=== PATIENT | male | born 1990 | race Caucasian/White ===

== ENCOUNTER 2025-03-30 19:32 | Emergency (ER) | payer BC, SELFPAY ==
--- OUTSIDE RECORDS SUMMARY | 2025-03-30 19:34 | XMS_ITS | Clinical Summary ---
Author Organization [email or web address] [facility] Address [address] [place] [address] Care Team Providers Care Welder Fabricator Name Role Phone Melissa Martin DO Primary Care Provider [phone] Allergies No known active allergies Medications Wiirk-7-NYX-EPA-Fi sh Oil 1,000 mg (120 mg-180 mg) cap Take 1 capsule by mouth. 0 8 Active cholecalciferol, Vitamin D3, (Vitamin D-3) 5,000 unit tab tablet Take 1 Tablet (5,000 units) by mouth once daily. 0 1 Active multivitamin (MVI) tablet Take 1 Tablet by mouth once daily. 0 1 Active methylphenidate HCl (METADATE ER) 20 mg extended-release tabletIndications: ADHD (attention deficit hyperactivity disorder), inattentive type Take 1 Tablet (20 mg) by mouth once daily. 30 Tablet 5 Active methylphenidate HCl 20 mg extended-release tabletIndications: ADHD (attention deficit hyperactivity disorder), inattentive type Take 1 Tablet (20 mg) by mouth once daily. 30 Tablet 5 Active methylphenidate HCl 20 mg extended-release tabletIndications: ADHD (attention deficit hyperactivity disorder), inattentive type Take 1 Tablet (20 mg) by mouth once daily. 30 Tablet 5 Active methylphenidate HCl 20 mg extended-release tabletIndications: ADHD (attention deficit hyperactivity disorder), inattentive type Take 1 Tablet (20 mg) by mouth once daily. 30 Tablet 5 Active Active Problems Problem Noted Date Diagnosed Date Acute stress disorder 11/04/2017 Depression 10/15/2017 Resolved Problems Problem Noted Date Diagnosed Date Resolved Date Tobacco use 04/01/2017 09/16/2024 Pain in joint, multiple sites 05/03/2008 04/01/2017 Major depressive disorder, s edson episode, unspecified 04/21/2008 04/01/2017 Ingrowing nail 07/15/2007 04/01/2017 Encounters Date Type Department Care Team Description 03/30/2025 4:45 PM CDT Ancillary Procedure [facility] [address] [place] [address] Arrived 03/30/2025 4:20 PM CDT Office Visit [facility] [address] [place] [address] hCuy Tirado MD Musculoskeletal Problem (Follow up Left ankle ) 03/30/2025 Travel 03/29/2025 8:30 AM CDT Office Visit [facility] [address] [place] [address] Guanakito Rodriguez DPManda Follow Up (Lft ankle fx /Xray 02/27/25/MRI 03/07/25 ) 03/29/2025 Travel 03/24/2025 Travel 03/08/2025 2:40 PM CDT Office Visit [facility] [address] [place] [address] Chuy Tirado MD Musculoskeletal Problem (Consult left ankle fracture per Dr. Martin) 03/07/2025 6:58 AM CDT - 03/07/2025 11:59 PM CDT Hospital Encounter [address] [address] Melissa Martin DO Pain and swelling of left ankle 03/07/2025 Travel 03/07/2025 Telephone [facility] [address] [place] [address] Melissa Martin DO 03/06/2025 3:10 PM CDT Office Visit [facility] [address] [place] [address] Melissa Martin DO Ankle Pain/problem (Left ankle pain 1 week ) 03/06/2025 Travel 02/27/2025 11:55 AM CDT Office [facility] [address] [facility] [address] Zulma Hyatt PA Ankle Pain/problem 02/27/2025 10:30 AM CDT Ancillary Procedure [facility] [address] [facility] [address] 02/27/2025 Travel 02/23/2025 1:30 PM CDT Office Visit [facility] [address] [facility] [address] Melissa Martin DO Toenail (Right great toe 1 week) 02/23/2025 Travel 01/05/2025 Telephone [facility] [address] [facility] [address] Melissa Martin DO Prior Authorization (methylphenidate HCl 20 mg extended-release tablet Approved 12/06/24-01/05/26) from Last 3 Months Immunizations Immunization Administration Dates Next Due AMB Influenza, IIV4 PF (=>6 mos Flulaval,Fluzone Fluarix)(Flu Clinic Only) 07/07/2019 COVID-19 vaccine ([employer] 30mcg/0.3mL) 12YO+ BIVALENT PF, MDV 07/01/2022 COVID-19 vaccine ([employer] 30mcg/0.3mL) PF, MDV 05/02/2021,04/11/2021 DTP 12/02/1990, 0,1989,1988 DTaP 05/09/1994 HIB HbOC (HibTITER) 12/02/1993 Hepatitis B (Peds) 10/14/1995,05/15/1995, 995 Influenza, IIV3 (Age >=3 years) 05/06/2011 Influenza, IIV4 07/01/2022,06/10/2016 MMR 12/04/2000,07/15/1990 Oral Polio Vaccine 05/09/1994, 1,1989,1988 Pneumococcal Conj 20-valent (Prevnar 20) 07/07/2023 Td (Age >=7 Years) 12/04/2000 Tdap 09/19/2022,03/26/2010 Family History Medical History Relation Name Comments Other Maternal Grandmother Teresita Vo upus Diabetes Mother Chrissie Psychiatric illness Other cousin c ommitted suicide age 24 Psychiatric illness Sister 2 depressi on Relation Name Status Comments Father Zack Alive Maternal Grandmother Teresita Caldera Mother Chrissie Alive Other Sister 1 Alisha Alive Sister 2 Social History Tobacco Use Types Packs/Day Years Used Date Smoking Tobacco: Former Cigarettes 0.5 10 Smokeless Tobacco: Never Tobacco Cessation:Counseling Given: Yes Alcohol Use Standard Drinks/Week Comments No 0 (1 standard drink = 0.6 oz pur e alcohol) PHQ-2 Answer Date Recorded PHQ-2 TOTAL SCORE 1 11/03/2024 Social Connections Answer Date Recorded Do you often feel lonely or isolated from those around you? 0 09/13/2024 Financial Resource Strain Answer Date R ecorded Difficulty of Paying Living Expenses 3 09/13/2024 Difficulty of Paying Living Expenses Not on file 09/13/2024 Food Insecurity Answer Date Recorded Do you worry your food will run out before you are able to buy more? 1 09/13/2024 Transportation Needs Answer Date Record ed Does lack of transportation keep you from medica l appointments? 1 09/13/2024 Does lack of transportation keep you from work, meetings or getting things that you need? 1 09/13/2024 Housing Stability Answer Date Recorded What is your housing situation today? 1 09/13/2024 Utilities Answer Date Recorded Do you have trouble paying f or utilities (for example, heat, electricity, water, phone)? 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 file Not on file Not on file Obstetrics History Last Filed Vital Signs Vital Sign Reading Time Taken Comments Blood Pressure 132/82 03/30/2025 4:19 PM CDT Pulse 82 03/30/2025 4:19 PM CDT Temperature 36.7 C (98.1 F) 03/30/2025 4:19 PM CDT Respiratory Rate - - Oxygen Saturation 95% 03/30/2025 4:19 PM CDT Inhaled Oxygen Concentration - - Weight 99.4 kg (219 lb 3.2 oz) 03/30/2025 4:19 P M CDT Height 176 cm (5' 9.29) 11/03/2024 10:45 AM PLUCK TRIMMER Body Mass Index 32.1 11/03/2024 10:45 AM PLUCK TRIMMER Plan of Treatment Upcoming Encounters Date Type Department Care Team (Late st Contact Info) Description 04/07/2025 3:10 PM CDT Office Visit [facility] [address] [place] [address] Melissa Martin DO [address] [place] [address] Health Maintenance Due Date Last Done Comments COVID-19 vaccine series ( season) 2024 07/01/2022, 05/02/2021, 04/11/2021 Influenza Vaccine (#1) 2025 , 07/07/2019, 06/10/2016, Additional history exists BMI (ht and wt on same day) for age 18+ 11/03/2025 11/03/2024, 08/17/2023, 06/18/2021, Additional history exists Depression screening for age 12+ 11/03/2025 11/03/2024, 05/09/2024, 08/17/2023, Additional history exists Lipids for age 35-44 11/03/2029 11/03/2024, 03/26/20 10 Tetanus booster 09/19/2032 09/19/2022, 03/01, 12/04/2000 Hepatitis B series for 19+ Completed 10/14, 05/15/1995, 04/14/1995 HIV for age 15-65 Completed 12/30/2017 Hepatitis C screening for age 18-79 Completed 12/30/2017 Pneumococcal series for age 6-49 Aged Out 07/07/2023 No longer eligible based on patient's age to complete this topic Procedures Procedure Name Priority Date/Time Associated Diagnosis Comments MR ANKLE LEFT WO STAT 03/07/2025 7:52 AM CDT Pain and swelling of left ankle CBC WITH AUTO DIFFERENTIAL Routine 03/06/2025 4:32 PM CDT Pain and swelling of left ankle URIC ACID Routine 03/06/2025 4:32 PM CDT Pain and swelling of left ankle SEDIMENTATION RATE Routine 03/06/2025 4: 32 PM CDT Pain and swelling of left ankle C-REACTIVE PROTEIN Routine 03/06/2025 4: 32 PM CDT Pain and swelling of left ankle LYME SCREEN W/REFLEX Routine 03/06/2025 4:32 PM CDT Pain and swelling of left ankle XR ANKLE 3 VIEWS LEFT SEYMOUR 02/27/2025 10:33 AM CDT Pain and swelling of left ankle LIPID PANEL W REFLEX MEASURED LDL Routine 11/03/2024 11:21 AM PLUCK TRIMMER Lipid screening ANTI HIV 1/2 Routine 12/30/2017 11:15 AM CDT Screen for STD (sexually transmitted disease) ACUTE HEPATITIS PANEL Routine 12/30/2017 11:15 AM CDT Screen for STD (sexually transmitted disease) from Last 3 Months or Most Recently Relevant to Health Maintenance Results * MR ANKLE LEFT WO (03/07/2025 7:52 AM CDT) Anatomical Region Laterality Modality ANKLE L Magnetic Resonan ce 03/07/2025 7:58 AM CDT Impressions 03/07/2025 7:58 AM CDT 1. Incomplete trabecular fracture distal tibial metaphysis with periosteal edema and soft tissue edema. No cortical offset. 2. Small bland reactive effusion tibiotalar ankle joint. Dictated by Chuy Alexander MD @ 03/07/2025 7:58:56 AM (Electronically Signed) Narrative 03/07/2025 7:58 AM CDT For Patients: As a result of the Century Cures Act, medical imaging exams and procedure reports are released immediately into your electronic medical record. You may view this report before your referring provider. If you have questions, please contact your health care provider. EXAM: MRI OF THE LEFT ANKLE, WITHOUT CONTRAST CLINICAL INDICATION: Ankle pain. Swelling. PRIOR SURGERY: None. COMPARISON PLAIN FILMS: 27 February 2025. COMPARISON CROSS-SECTIONAL IMAGING STUDIES: None. TECHNICAL: Axial, sagittal and coronal T1, PD, PDFS and STIR images. FINDINGS: OSSEOUS STRUCTURES: Serrated thin sclerotic trabecular fracture line with prominent surrounding T2 and STIR marrow edema in the distal tibial metaphysis without definitive cortical offset. Periosteal edema along the medial distal metaphysis. Surrounding soft tissue edema. Normal marrow in the fibula and talus as well as throughout the hind and midfoot. JOINT SPACES: Small bland effusion of the ankle with uniform cartilage no osteochondral injury. Posterior subtalar joint is unremarkable appearing. Anatomic alignment of the Chopart joint. Upper normal joint fluid volume talonavicular joint. Joint spaces within the visualized midfoot and at the midfoot-forefoot junction are maintained. LIGAMENTS: Syndesmotic Ligaments: The anterior and posterior syndesmotic ligaments are intact. Lateral Ligaments: The anterior talofibular, calcaneofibular and posterior talofibular ligaments are intact. Medial Ligaments: The superficial and deep components of the deltoid ligament complex are maintained. Spring Ligaments: The calcaneonavicular spring ligament complex is intact. TENDONS: Flexor Tendons: The posterior tibial, flexor digitorum longus and flexor hallucis longus tendons are intact. Extensor Tendons: The anterior extensor tendons are intact. Achilles Tendon: The Achilles tendon is intact without tendinosis, tear or peritendinitis changes. Peroneal Tendons: The peroneus longus and brevis tendons are intact. No accessory peroneus quartus. TARSAL TUNNEL: The soft tissues of the tarsal tunnel are normal without mass or fluid collection. No abnormality along the course of the medial or lateral plantar nerves. SINUS TARSI: The structures of the sinus tarsi appear normal. No disruption of the interosseous ligaments or significant effacement of fat. PLANTAR SOFT TISSUES: The plantar fascia is intact. There is no significant plantar calcaneal spur. No atrophy or edema of the abductor digiti minimi muscle belly. OTHER FINDINGS: There is no soft tissue mass or fluid collection. Procedure Note Benjamin, Chuy Eliazar, MD - 03/07/2025 For Patients: As a result of the 21st Century Cures Act, medical imagingexams and procedure reports are released immediately into your electronicmedical record. You may view this report before your referring provider.If you have questions, please contact your health care provider. EXAM: MRI OF THE LEFT ANKLE, WITHOUT CONTRAST CLINICAL INDICATION: Ankle pain. Swelling. PRIOR SURGERY: None. COMPARISON PLAIN FILMS: 27 February 2025. COMPARISON CROSS-SECTIONAL IMAGING STUDIES: None. TECHNICAL: Axial, sagittal and coronal T1, PD, PDFS and STIR images. FINDINGS: OSSEOUS STRUCTURES: Serrated thin sclerotic trabecular fracture line with prominentsurrounding T2 and STIR marrow edema in the distal tibial metaphysiswithout definitive cortical offset. Periosteal edema along the medialdistal metaphysis. Surrounding soft tissue edema. Normal marrow in thefibula and talus as well as throughout the hind and midfoot. JOINT SPACES: Small bland effusion of the ankle with uniform cartilage no osteochondralinjury. Posterior subtalar joint is unremarkable appearing. Anatomicalignment of the Chopart joint. Upper normal joint fluid volumetalonavicular joint. Joint spaces within the visualized midfoot and at themidfoot-forefoot junction are maintained. LIGAMENTS: Syndesmotic Ligaments: The anterior and posterior syndesmotic ligamentsare intact. Lateral Ligaments: The anterior talofibular, calcaneofibular and posteriortalofibular ligaments are intact. Medial Ligaments: The superficial and deep components of the deltoidligament complex are maintained. Spring Ligaments: The calcaneonavicular spring ligament complex is intact. TENDONS: Flexor Tendons: The posterior tibial, flexor digitorum longus and flexorhallucis longus tendons are intact. Extensor Tendons: The anterior extensor tendons are intact. Achilles Tendon: The Achilles tendon is intact without tendinosis, tear orperitendinitis changes. Peroneal Tendons: The peroneus longus and brevis tendons are intact. Noaccessory peroneus quartus. TARSAL TUNNEL: The soft tissues of the tarsal tunnel are normal without mass or fluidcollection. No abnormality along the course of the medial or lateralplantar nerves. SINUS TARSI: The structures of the sinus tarsi appear normal. No disruption of theinterosseous ligaments or significant effacement of fat. PLANTAR SOFT TISSUES: The plantar fascia is intact. There is no significant plantar calcanealspur. No atrophy or edema of the abductor digiti minimi muscle belly. OTHER FINDINGS: There is no soft tissue mass or fluid collection. IMPRESSION: 1. Incomplete trabecular fracture distal tibial metaphysis with periostealedema and soft tissue edema. No cortical offset. 2. Small bland reactive effusion tibiotalar ankle joint. Dictated by Chuy Alexander MD @ 03/07/2025 7:58:56 AM (Electronically Signed) [facility] Jacque Martin MR Final Resu lt * SEDIMENTATION RATE (03/06/2025 4:32 PM CDT) Pathologist [facility] [place] SED RATE BY DALLIN HELMS 9 < OR = 15 mm/h [facility] Blood BLOOD SPECIMEN / Unknown 03/06/2025 4:32 PM CDT 03/06/2025 4:32 PM CDT [facility] Jacque Martin HEMATOLOGY Final Resu lt [facility] [address] [place] [address], [facility] [address] [place] [address] * LYME SCREEN W/REFLEX (03/06/2025 4:32 PM CDT) Pathologist [facility] [place] LYME AB, SCREEN < or = 0.90 index [facility], Comment: REFERENCE RANGE: < OR = 0.90 Index Index Interpretation < OR = 0.90 NEGATIVE 0.91 - 1.09 EQUIVOCAL > OR = 1.10 POSITIVE This assay measures Lyme Disease (Borrelia burgdorferi) IgG plus IgM antibodies; it does not distinguish results that are both IgG and IgM positive from results that are either IgG or IgM positive. As recommended by the Centers for Disease Control and Prevention (CDC), all samples with positive or equivocal results in this screening assay will be tested using separate supplemental Lyme IgG and IgM immunoassays. Positive or equivocal screening assay results should not be interpreted as truly positive until verified as such using the supplemental assays. Screening and/or supplemental tests for Lyme disease antibodies may be falsely negative in early stages of Lyme disease, including the period when erythema migrans is apparent. These assays may be falsely positive in patients with other spirochetal diseases (e.g., syphilis) or infectious mononucleosis. Blood BLOOD SPECIMEN / Unknown 03/06/2025 4:32 PM CDT 03/06/2025 4:32 PM CDT [facility] Jacque Martin DO SEND OUTS Final Resu lt Performing Organization Address City/[facility]/ZIP Co de Phone Number [facility] [address] [place] [address], [facility] [place] [address] [place] [address] * C-REACTIVE PROTEIN (03/06/2025 4:32 PM CDT) [facility] C-REACTIVE PROTEIN 3.6 <8.0 mg/L [facility] Blood BLOOD SPECIMEN / Unknown 03/06/2025 4:32 PM CDT 03/06/2025 4:32 PM CDT [facility] DO CHEMISTRY Final Resu lt Performing Organization Address [facility]/ZIP Co de Phone Number [facility] [address] [place] [address], [facility] [address] [place] [address] * CBC AND DIFFERENTIAL (03/06/2025 4:32 PM CDT) [facility] WHITE BLOOD CELL COUNT 6.9 3.8 - 10.8 Thousand/u L [facility] RED BLOOD CELL COUNT 4.70 4.20 - 5.80 Million/uL [facility] HEMOGLOBIN 14.9 13.2 - 17.1 g/dL [facility] HEMATOCRIT 45.2 38.5 - 50.0 % [facility] MCV 96.2 80.0 - 100.0 fL [facility] MCH 31.7 27.0 - 33.0 pg [facility] MCHC 33.0 32.0 - 36.0 g/dL [facility] Comment: For adults, a slight decrease in the calculated MCHC value (in the range of 30 to 32 g/dL) is most likely not clinically significant; however, it should be interpreted with caution in correlation with other red cell parameters and the patient's clinical condition. RDW 11.8 11.0 - 15.0 % [facility] PLATELET COUNT 229 140 - 400 Thousand/u L [facility] MPV 11.6 7.5 - 12.5 fL [facility] ABSOLUTE NEUTROPHILS 3,209 1,500 - 7,800 cells/uL [facility] ABSOLUTE LYMPHOCYTES 3,050 850 - 3,900 cells/uL [facility] ABSOLUTE MONOCYTES 573 200 - 950 cells/uL [facility] ABSOLUTE EOSINOPHILS 21 15 - 500 cells/uL [facility] ABSOLUTE BASOPHILS 48 0 - 200 cells/uL [facility] NEUTROPHILS 46.5 % [facility] LYMPHOCYTES 44.2 % [facility] MONOCYTES 8.3 % [facility] EOSINOPHILS 0.3 % [facility] BASOPHILS 0.7 % [facility] Blood BLOOD SPECIMEN / Unknown 03/06/2025 4:32 PM CDT 03/06/2025 4:32 PM CDT us Melissa Martin DO HEMATOLOGY Final Resu lt [facility] [address] [place] [address], [facility] [address] [place] [address] * URIC ACID (03/06/2025 4:32 PM CDT) URIC ACID 5.5 4.0 - 8.0 mg/dL [facility] Comment: Therapeutic target for gout patients: <6.0 mg/dL Blood BLOOD SPECIMEN / Unknown 03/06/2025 4:32 PM CDT 03/06/2025 4:32 PM CDT Melissa Santillan Mario DO CHEMISTRY Final Resu lt [facility] [address] [place] [address], [facility] [address] [place] [address] * XR ANKLE 3 VIEWS LEFT (02/27/2025 10:33 AM CDT) Anatomical Region Laterality Modality ANKLES, ANKLE L [employer] a[employer] 02/27/2025 10:4 2 AM CDT Narrative 02/27/2025 10:42 AM CDT For Patients: As a result of the Cures Act, medical imaging exams and procedure reports are released immediately into your electronic medical record. You may view this report before your referring provider. If you have questions, please contact your health care provider. Indication: Pain and swelling of left ankle Technique: Left ankle 3 views Comparison: None Findings: Bones: Alignment is normal. No fractures or bone lesions. Joint spaces: Joint spaces are well maintained. No degenerative changes. Soft tissues: Unremarkable. Impression: No findings to explain pain. Dictated by Brady Corrigan MD @ 02/27/2025 10:42:17 AM (Electronically Signed) Procedure Note Brady Corrigan MD - 02/27/2025 For Patients: As a result of the Cures Act, medical imagingexams and procedure reports are released immediately into your electronicmedical record. You may view this report before your referring provider.If you have questions, please contact your health care provider. Indication: Pain and swelling of left ankle Technique: Left ankle 3 views Comparison: None Findings: Bones: Alignment is normal. No fractures or bone lesions. Joint spaces: Joint spaces are well maintained. No degenerative changes. Soft tissues: Unremarkable. Impression: No findings to explain pain. Dictated by Brady Corrigan MD @ 02/27/2025 10:42:17 AM (Electronically Signed) [facility] Final Result * (ABNORMAL) LIPID PANEL W REFLEX MEASURED LDL (11/03/2024 11:21 AM PLUCK TRIMMER) CHOLESTEROL, TOTAL 192 <200 mg/dL [facility] HDL CHOLESTEROL 41 > OR = 40 mg/dL [facility] TRIGLYCERIDES 255(H) <150 mg/dL [facility] Comment: If a non-fasting specimen was collected, consider repeat triglyceride testing on a fasting specimen if clinically indicated. Jayjay et al. J. of Clin. Lipidol. 2015;9:129-169. LDL-CHOLESTEROL 115(H) mg/dL (calc) [facility] Comment: Reference range: <100 Desirable range <100 mg/dL for primary prevention; <70 mg/dL for patients with CHD or diabetic patients with > or = 2 CHD risk factors. LDL-C is now calculated using the Toni-Araiza calculation, which is a validated novel method providing better accuracy than the Friedewald equation in the estimation of LDL-C. Toni SS et al. JUSTICE. 2013;310(19): 8456-4455 (http://education.[employer]riaBio/faq/SJS495) CHOL/HDLC RATIO 4.7 <5.0 (calc) [facility] NON HDL CHOLESTEROL 151(H) <130 mg/dL (calc) [facility] Comment: For patients with diabetes plus 1 major ASCVD risk factor, treating to a non-HDL-C goal of <100 mg/dL (LDL-C of <70 mg/dL) is considered a therapeutic option. Blood BLOOD SPECIMEN / Unknown 11/03/2024 11:21 AM PLUCK TRIMMER 11/03/2024 11:21 AM PLUCK TRIMMER Melissa Martin DO CHEMISTRY Final Resu lt [facility] [address] [place] [address], [place] [phone] [facility] [address] [place] [address] * ANTI HIV 1/2 (12/30/2017 11:15 AM CDT) HIV-1/HIV-2 ANTIBODY Non-Reacti ve Non-Reacti ve 12/30/2017 5:07 PM CDT [facility] Comment:HIV-1 p24 and HIV-1/ HIV-2 Ab not detected. Blood BLOOD SPECIMEN / Unknown Venipuncture / Unknown 12/30/2017 11:15 AM CDT 12/30/2017 11:15 AM CDT Melissa Martin DO SEND OUTS Final Resu lt [facility] [address] [place] [address], [place] * ACUTE HEPATITIS PANEL (12/30/2017 11:15 AM CDT) HEPATITIS C ANTIBODY Non-Reactive Non-Reactive 12/30/2017 5:07 PM CDT [facility] Comment:Antibodies to HCV no t detected; does not exclude the possibility of exposure to HCV. IGM ANTI HAV Non-Reactive Non-Reactive 12/31/19 18 5:07 PM CDT [facility] HBSAG Nonreactive Nonreactive 12/30/2017 5:07 PM CDT [facility] IGM ANTI HBC Non-Reactive Non-Reactive 12/31/19 18 5:07 PM CDT [facility] Blood BLOOD SPECIMEN / Unknown Venipuncture / Unknown 12/30/2017 11:15 AM CDT 12/30/2017 11:15 AM CDT Narrative [facility] - 12/30/2017 5:07 PM CDT Anti-HBc IgM not detected. Does not exclude the possibility of exposure to or infection with HBV. us Melissa Martin DO SEND OUTS Final Resu lt [facility] [address] [place] [address], [place] from Last 3 Months or Most Recently Relevant to Health Maintenance Insurance [facility] FED [facility] Care Teams Welder [employer] Relationship Specialty Start Date End Date Melissa Martin [place] [address] PCP - General Family Practice 11/04/17
[2025-03-30 19:46] VITALS: BP 178/107; PULSE 85; RESP 16; TEMP 37.1; O2SAT 95; BMI 32.3
[2025-03-30 20:08] LABS: Appearance Urine Clear (Clear)
--- NOTE | 2025-03-30 20:12 | CRLHL7_ITS ---
For Patients: As a result of the Century Cures Act, medical imaging exams and procedure reports are released immediately into your electronic medical record. You may view this report before your referring provider. If you have questions, please contact your health care provider. Indication: Left testicular pain. Technique: Ultrasound of the scrotum and contents. Sonographic fischer-scale images were obtained with spectral and color Doppler waveform and spectral waveform analysis of the testicles. Comparison: None. Findings: Bother testicles are normal in size and echotexture. No masses. No suspicious calcifications. Normal arterial and venous color Doppler blood flow and spectral waveforms are present in both testicles. Epididymis: Probable subtle increased flow at the tail of the left epididymis. Right epididymis is unremarkable. Other: No significant hydrocele. No sign of varicocele. Scrotal wall is normal. Impression: Impression:Probable early or mild left epididymitis. Dictated by Demi Brewer MD @ 03/30/2025 9:04:45 PM (Electronically Signed)
--- NOTE | 2025-03-30 20:17 | ED.GENADULT ---
HPI - General Adult General Chief complaint: Groin Pain Stated complaint: testicular pain Time Seen by Provider: 03/30/25 19:47 Source: patient Mode of arrival: ambulatory Limitations: no limitations History of Present Illness HPI narrative: 34-year-old male presents the emergency department with a 2-1/2 hour history of pain in the left scrotum. No trauma or injury. No prior surgery to this area. No anticoagulant use. No dysuria, hematuria or urinary changes. Achy pain, constant the left testicle. Still notices normal movement of the testicle. No prior similar history. Did not try any interventions prior to coming to ED. no skin abnormalities noted. ROS is notable for the testicular pain only, otherwise denies times 12 systems. No known drug allergies. Only home medication is methylphenidate. Nonsmoker. Related Data Home Medications ?Medication ?Instructions ?Recorded ?Confirmed methylphenidate HCl 20 mg 20 mg PO DAILY 03/30/25 03/30/25 tablet,extended release Previous Rx's ?Medication ?Instructions ?Recorded levofloxacin 500 mg tablet 500 mg PO DAILY #9 tabs 03/30/25 Allergies Allergy/AdvReac Type Severity Reaction Status Date / Time No Known Drug Allergies Allergy Verified 03/30/25 19:49 Exam Const: Vital Signs, click to edit/add: Vital Signs - 24 hr 03/30/25 19:46 Temperature 98.7 F Pulse Rate [Pulse Oximeter] 85 Respiratory Rate 16 Blood Pressure [Ri ght Upper Arm] 178/107 H Pulse Oximetry 95 Oxygen Delivery Me thod Room Air Documenting provider has reviewed patient's vital signs: yes Common normals: no apparent distress General appearance: cooperative and well kempt HENMT: Common normals: normocephalic and moist oral mucous membranes Head and scalp: normocephalic Eye: General eye: normal appearance of both eyes Neck & C-Spine: General: normal visual inspection Resp: Common normals: normal respiratory effort Effort & inspection: able to speak in complete sentences GI: Inspection: normal to inspection Other: Nondistended appearing : Other: Normal appearing circumcised penis. Scrotum appears normal. The right testicle normal in size and contour, nontender. Normal cremaster reflex. Left testicle is normal in size and contour. Normal cremasteric reflex. No tenderness to the testicle itself but tenderness along the epididymis is noted with swelling noted to the epididymis. Spermatic cord feels normal. No evidence of hernia. No bruising or skin abnormalities. Psych: Appearance: well kempt Attitude: engaged Activity/motor behavior: appropriate eye contact Skin: Common normals: no rashes or lesions noted General skin exam: no rashes or lesions noted Course Course ED Course: 34-year-old male with testicular pain suspicious for epididymitis though cannot rule out testicular torsion, mass, hernia, urinary infection, other etiology. Will give Toradol 10 mg p.o. x1 and I have ordered a scrotal ultrasound as well as urinalysis. Low suspicion for torsion at this time. Reevaluation(s) Time of Reevaluation #1: 21:24 Reevaluation #1: Counseled patient on findings. Ultrasound is suggestive of epididymitis, as was exam. There is certainly no signs of torsion. Patient reports that he is pretty low risk for STDs. And certainly not having any periurethral symptoms. Counseled patient that we do tender recommend empiric treatment with Rocephin but I do not think that he needs a course of doxycycline, just the level floxacillin that would typically be used to treat the epididymitis. Rationale discussed. 500 mg of Rocephin x1, level floxacillin 500 once daily for 10 days. First dose here in the ED. Counseled on Tylenol and ibuprofen as needed for discomfort. Primary care follow-up if symptoms have not resolved at the time of antibiotic completion or if he has recurrence within for weeks. May need Urology consult if this is the case. Alarm symptoms reviewed that would warrant ED presentation in the interim. He verbalizes understanding and agreement. Written instructions provided. Vital Signs Vital signs: Initial Vital Signs Temperature 98.7 F 03/30/25 19:46 Temperature Source Temporal Artery Scan 03/30/25 19:46 Pulse Rate 85 03/30/25 19:46 Respiratory Rate 16 03/30/25 19:46 Blood Pressure 178/107 H 03/30/25 19:46 Blood Pressure Mean 130 H 03/30/25 19:46 Blood Pressure Position Sitting 03/30/25 19:46 Pulse Oximetry 95 03/30/25 19:46 Oxygen Delivery Method Room Air 03/30/25 19:46 Vital Signs Temperature 98.7 F 03/30/25 19:46 Pulse Rate 85 03/30/25 19:46 Respiratory Rate 16 03/30/25 19:46 Blood Pressure 178/107 H 03/30/25 19:46 Pulse Oximetry 95 03/30/25 19:46 Oxygen Delivery Method Room Air 03/30/25 19:46 Temperature 98.7 F 03/30/25 19:46 Pulse Rate 85 03/30/25 19:46 Respiratory Rate 16 03/30/25 19:46 Blood Pressure 178/107 H 03/30/25 19:46 Pulse Oximetry 95 03/30/25 19:46 Oxygen Delivery Method Room Air 03/30/25 19:46 Medications Administered Medications: Discontinued Medications Generic Name Dose Route Start Last Admin Trade Name Freq PRN Reason Stop Dose Admin Ketorolac Tromethamine 10 mg 03/30/25 20:18 03/30/25 20:26 Ketorolac 10 Mg Tablet PO 03/30/25 20:19 10 mg ONCE ONE Administration Medical Decision Making Lab Data Lab results reviewed: Yes I reviewed the patient's lab results Lab results narrative: Normal urinalysis, no signs of infection or blood Labs: Lab Results 03/30/25 Range/Units 19:54 Urine Color Yellow (Yellow) Urine Appearance Clear (Clear) Urine pH 5.5 (5.0-8.5) Ur Specific [place] >= 1.030 (1.000-1.030) Urine Protein Negative (Negative) Urine Glucose (UA) Negative (Negative) Urine Ketones Negative (Negative) Urine Blood Negative (Negative) Urine Nitrite Negative (Negative) Urine Bilirubin Negative (Negative) Urine Urobilinogen 0.2 (0.2-1.0) Ur Leukocyte Esterase Negative (Negative) Urine RBC 0-2 (0-2) Urine WBC 0-2 (0-5) Ur Squamous Epith Cells Few (None-Few) Urine Bacteria None (None) Imaging Data Scrotum ultrasound: Attestation: I have reviewed the pertinent imaging results. My impression: No torsion, good blood flow. No obvious mass. Radiologist's impression: Findings: Bother testicles are normal in size and echotexture. No masses. No suspicious calcifications. Normal arterial and venous color Doppler blood flow and spectral waveforms are present in both testicles. Epididymis: Probable subtle increased flow at the tail of the left epididymis. Right epididymis is unremarkable. Other: No significant hydrocele. No sign of varicocele. Scrotal wall is normal. Impression: Impression:Probable early or mild left epididymitis. Dictated by Demi Brewer MD @ 03/30/2025 9:04:45 PM Discharge Plan Discharge Clinical Impression: Acute epididymitis Patient Disposition: Home, Self-Care Condition: Stable Instructions: Epididymitis (ED) Additional Instructions: As we discussed, you have an inflammation of the gland that lives on the top back part of the testicle called epididymitis. Unfortunately people that get this are more prone to getting it again. Often, there is some mild scar tissue that can build up from these areas of inflammation causing it to block the ducts and more likely to get inflamed and or infected in the future. We have started on antibiotics. We is a combination of Rocephin which is a single 1 time injection, unfortunately this will be pretty tender for about 24 hours but then we have also started you on levofloxacillin, on oral antibiotic that you will take once daily for the next 10 days total. I have sent a prescription to your pharmacy. Your next dose will be due Thursday at bedtime. For pain, I recommend Tylenol 1000 mg every 6 hours and or ibuprofen 600 mg every 6 hours, both are available [id number]. If her symptoms have not resolved by the time you have completed your antibiotics, please make a follow-up appointment in the clinic for re-evaluation and referral to a urologist. Activity Level: No Restrictions Discharge Diet: Regular Prescriptions: New levofloxacin 500 mg tablet 500 mg PO DAILY Qty: 9 0RF No Action methylphenidate HCl 20 mg tablet extended release 20 mg PO DAILY Follow Up/Referrals: Melissa Martin DO [Primary Care Provider, Family Practice] Stand Alone Forms: [employer] Info Instructions
[2025-03-30] MEDS: KETOROLAC 10 MG TABLET PO (20:26)
[2025-03-30] MEDS: LIDOCAINE 1% 5 ml (pf) 5 ML VIAL 1 ML IM (21:28)
[2025-03-30] MEDS: cefTRIAXone 500 MG VIAL IM (21:28)
== END 2025-03-30 21:31 | disposition home or self-care (01) ==
PROVIDERS: Emergency Provider Family Medicine; PCP Family Medicine
DX: N45.1 Epididymitis (principal)
CPT/HCPCS: 76870; 81001; 93976; 96372; 99284; A9270; J0696